=== PATIENT | female | born 1985 | race African-American/Black ===

== ENCOUNTER 2020-04-10 12:35 | Outpatient (CLI) | payer OTHER ==
[~2020-04-10] VITALS: Ht 167.6 cm; Wt 93.4 kg
[2020-04-10 12:57] VITALS: BP 107/67
[2020-04-10] MEDS ORDERED: PRENTAB9 PO (13:32)
[2020-04-10 14:22] LABS: INFLUENZA A AMPLIFICATION NEGATIVE (NEGATIVE); INFLUENZA B AMPLIFICATION NEGATIVE (NEGATIVE)
[2020-04-10 15:19] VITALS: BP 126/75
--- NOTE | 2020-04-10 16:07 | HPEPDOC ---
Obstetrical History & Physical General Date of Admission History of Present Illness 04/10/20 1530 seen in ed sent to avi RLQ pain x24 hours with movement no vaginal loss or bleeding good movement . also sob with pain . Age: 36 : 4 Term: 2 Abortions: 1 Care Care: Good Care Dating Final EDC: Jun 11, 2020 Final EDC for Daily Update: Jun 11, 2020 Final EDC by: 1st trimester (US) LMP: Sep 05, 2019 Estimated Date of Confinement: Jun 11, 2020 Antepartum Course Diagnos(e)s AMA LATE ENTRY TO CARE TRANSFER FROM [facility] Past Medical History Past Medical History Medical History NON CONTRIBUTORY Surgical History: Other Family History Significant Family History: No pertinent family hx Social History Social history NON SMOKER NO ETOH NO RECREATIONAL DRUGS NO VAPING TO [employer] NO VIOLENCE Marital Status: Psychosocial History: No pertinent psych hx * Smoker: non-smoker Alcohol: Denies Drugs: denies Abuse Violence Screening Have you been hit/kicked/slapp: No Have you been sexually assault: No Allergies Coded Allergies: No Known Allergies (Unverified , 04/10/20) Medications Scheduled No.137/Iron/Folic Acd ( Vitamin Tablet) 1 Each Tablet, 1 TAB PO DAILY Physical Examination Physical Examination GENERAL: Alert and oriented times three. BREAST: . ABDOMEN: Gravid and non-tender to touch. FETUS: Is vertex (VTX) HEART RATE: Regular rate and rhythm. LUNGS: Clear to auscultation (CTA). EXTREMITIES: No edema. No clonus. Deep tendon reflexes (DTRs) + . Vital Signs/I&O Vital Signs Date Time Temp Pulse Resp B/P (MAP) Pulse Ox O2 Delivery O2 Flow Rate FiO2 04/10/20 15:13 30 04/10/20 12:57 98.3 86 107/67 (80) Laboratory Data 24H LABS Laboratory Tests 2 04/10/20 13:11: Coronavirus (COVID-19)(PCR) NEGATIVE 04/10/20 13:42: Influenza Type A (RT-PCR) NEGATIVE, Influenza Type B (RT-PCR) NEGATIVE Pertinent Laboratoy Data Blood Type: B+ RBC Antibody Screen: Negative HIV: Negative Hepatitis B: Negative Hepatitis C: Negative Rapid Plasma Reagin: Nonreactive Rubella: Immune Varicella: Immune Group B Streptococcus: Unknown Anatomy Ultrasound Ultrasound Date: Apr 10, 2020 Placenta Location: Anterior Placenta Previa: No Other Ultrasounds EXPLAINED PROCEDURE CONSENTED ABDOMINAL US VERTEX LIMB MOVEMENT NOTED PAIN REPRODUCED WITH MOVEMENT SPONTANOUS RESPIRATION CARDIAC ACTIVITY NOTED CAMILA 2.78CM 2.46CM 2.75 CM 6.99 CM Steroid Therapy Steroid Therapy: No Vaginal Examination Presentation: Cephalic presentation Assessment Variability: Moderate Accelerations: Positive Decelerations: None Tocometer Contractions: No Assessment/Plan Assessment 36 Y.O IS A 5para 2 at 31 weeks by ultrasound. Presents to Labor and Delivery RLQ PAIN WITH POSITION AND RAPID RR NO SOB NO COUGH FLU LIKE SYMPTOMS . Plan Shipping Technician and consent. Diet: REGULAR Group B Streptococcus (GBS) UNKNOWN Labor and Delivery Counseling PLAN REVIEWED WAS COVID TESTED AND INFLUENZA TESTED NEGATIVE CALL FT [facility] FOR INTAKE APPOINTMENT PRECAUTIONS GIVEN DISCHARGED UNDELIVERED . FINAL NST CATAGORY 1 STRIP NO CONTRACTIONS Brian Jimenez MD Apr 10, 2020 16:03
== END 2020-04-10 15:45 | disposition home or self-care (01) ==
LOC: M LDO 12:35
PROVIDERS: ATTEND Obstetrics & Gynecology
DX: O99.513 Diseases of the respiratory system complicating pregnancy, third trimester (principal); R10.31 Right lower quadrant pain; Z3A.31 31 weeks gestation of pregnancy
CPT/HCPCS: 59025; 76815; 87502; G0378; G0463; U0002

== ENCOUNTER 2020-06-01 02:09 | Inpatient (IN) | payer OTHER ==
[~2020-06-01] VITALS: Ht 167.6 cm; Wt 95.0 kg
[~2020-06-01 02:09] MED LIST: PRENTAB9 PO
[2020-06-01] MEDS ORDERED: LR 1,000 ML IV SCH (02:35)
[2020-06-01] MEDS ORDERED: OXYTOCIN 30 UNITS IN 0.9% NaCl 500ML IV BAG (J2590) As Ordered ONE (02:41)
[2020-06-01] MEDS ORDERED: IBUPROFEN 800 MG TAB PO PRN (02:45)
[2020-06-01] MEDS ORDERED: ACETAMINOPHEN 500 MG TAB PO PRN (02:45)
[2020-06-01] MEDS ORDERED: OXYTOCIN INJ 10 UNITS/ML VIAL (J2590) IM ONE (02:45)
[2020-06-01] MEDS ORDERED: PROMETHAZINE 25 MG TAB PO PRN (02:45)
[2020-06-01] MEDS ORDERED: ANUSOL HC CREAM 30GM TOP PRN (02:45)
[2020-06-01] MEDS ORDERED: MOM 30ML SUSPENSION UDC PO PRN (02:45)
[2020-06-01] MEDS ORDERED: BENZOCAINE 20% HEMORRHOIDAL OINTMENT 28GM TUBE TOP PRN (02:45)
[2020-06-01] MEDS ORDERED: miSOPROStol 200 MCG TAB (S0191) PR ONE (02:45)
[2020-06-01 02:54] LABS: CORD GAS ABE A -3.4; CORD GAS ABE V -1.5; CORD GAS HCO3 A 23.1 MEQ/L; CORD GAS HCO3 V 24.7 MEQ/L; CORD GAS O2 SAT A 77.7 %; CORD GAS O2 SAT V 67.2 %; CORD GAS PCO2 V 47.3 mmHg; CORD GAS PH A 7.309 UNITS; CORD GAS PH V 7.335 UNITS; CORD GAS PO2 A 36.5 mmHg; CORD GAS PO2 V 29.1 mmHg; CORD GAS SBC A 21.2 MEQ/L; CORD GAS SBC V 22.5 MEQ/L; CORD GAS TCO2 A 24.5 MEQ/L; CORD GAS TCO2 V 26.1 MEQ/L
--- NOTE | 2020-06-01 02:57 | DNPDOC ---
[facility] Delivery Note Delivery Note DATE OF DELIVERY: 06/01/2020 PREDELIVERY DIAGNOSIS: 36 ND 4/7 weeks' gestation and labor. POST DELIVERY DIAGNOSIS: Delivered. PROCEDURE: Spontaneous vaginal delivery. CHIEF ENGINEER PRODUCTION: Leo Pedraza MD ANESTHESIA: NONE ESTIMATED BLOOD LOSS: 100 mL. FINDINGS: 7 pound 15 ounce MALE , Score 9/9, nuchal cord times ZERO. DELIVERY SUMMARY: Patient is a 35-year-old 3 now para 3003 who was admitted to labor and PRECIPITOUSLY DELIVERED A health male with Score 9/9. I was called to the room that " baby was out". upon delivery in the room, RN Tone Caldwell had delivered baby boy and was holding him in her hands in the bathroom. I cut the cord and mother was worked back to the bed. placenta was then delivered spontaneously and inspection releaved an intact perineum in. the baby was taken to the warmer with apgars of 9/9. 10ml IM Pitocin and 100omcg of cytotec was given as patient did not have IV access. EBL was 100mL. The vagina and perineum were reinspected and no further lacerations were found and hemostasis was good. Fundus was firm. Patient tolerated delivery well. cord gas were obtained LEO MARTIN MD Jun 01, 2020 02:57
[2020-06-01] MEDS ORDERED: KETOROLAC 30 MG/ML 1ML VIAL As Ordered ONE (02:58)
[2020-06-01] MEDS ORDERED: KETOROLAC 30 MG/ML 1ML VIAL IV ONE (03:00)
--- NOTE | 2020-06-01 03:03 | HPEPDOC ---
Obstetrical History & Physical General Date of Admission Jun 01, 2020 at 02:13 History of Present Illness THIS IS a 35 yo G4 NOW P3 0013 WHO PRESENTED TO L&D and precipitously delivered a healthy male infant with apgars of 9/9. she is RH positive and GBS Negative. Past Medical History Allergies Coded Allergies: No Known Allergies (Unverified , 04/10/20) Medications Scheduled No.137/Iron/Folic Acd ( Vitamin Tablet) 1 Each Tablet, 1 TAB PO DAILY Physical Examination Physical Examination GENERAL: Alert and oriented times three. BREAST: . EXTREMITIES: No edema. No clonus. Deep tendon reflexes (DTRs) + . Laboratory Data 24H LABS Laboratory Tests 2 06/01/20 02:33: Cord Arterial Blood pH 7.309, Cord Arterial Blood PCO2 47.0, Cord Arterial Blood PO2 36.5, Cord Arterial Blood HCO3 23.1, Cord Arterial Blood Total CO2 24.5, Cord Arterial Blood Base Excess -3.4, Cord Arterial Base Excess (Standard 21.2, Cord Arterial Bld Oxygen Saturation 77.7, Cord Venous Blood pH 7.335, Cord Venous Blood PCO2 47.3, Cord Venous Blood PO2 29.1, Cord Venous Blood HCO3 24.7, Cord Venous Blood Total CO2 26.1, Cord Venous Base Excess (Actual) -1.5, Cord Venous Base Excess (Standard) 22.5, Cord Venous Blood Oxygen Saturation 67.2 Assessment/Plan Assessment THIS IS a 35 yo G4 NOW P3 0013 WHO PRESENTED TO L&D and precipitously delivered a healthy male with apgars of 9/9. she is RH positive and GBS Negative Plan Transfer to [facility]OUTINE [facility]ARE. LEO MARTIN MD Jun 01, 2020 03:03
[2020-06-01 03:27] LABS: HEMATOCRIT 42.8 % (36.0-47.0); HEMOGLOBIN 13.2 g/dl (12.0-15.5); MEAN CORPUSCULAR HEMOGLOBIN 27.3 pg (27.0-33.0); MEAN CORPUSCULAR HGB CONC 30.8 g/dl (32.0-36.5); MEAN CORPUSCULAR VOLUME 88.6 fl (80.0-96.0); PLATELET COUNT, AUTOMATED 255 10^3/uL (150-450); RED BLOOD COUNT 4.83 10^6/uL (4.00-5.40)
[2020-06-01 06:00] VITALS: BP 130/75
[2020-06-01] MEDS: FERROUS SULFATE 325MG TAB PO SCH (08:34)
[2020-06-01] MEDS: DOCUSATE SODIUM 100MG CAPSULE PO SCH ×2 (08:34→19:57)
[2020-06-01] MEDS: IBUPROFEN 800 MG TAB PO PRN (12:37)
[2020-06-01 18:00] VITALS: BP 119/62
[2020-06-02 06:26] VITALS: BP 114/73
--- NOTE | 2020-06-02 07:12 | IPNPDOC ---
Progress Note Date of Service: Jun 02, 2020 Day#: 1 Progress Note SUBJECT: 35 year-old 4 now Para 4 status post uncomplicated spontaneous vaginal delivery on 06/01/20of a M doing well day # 1. She has been ambulating, voiding spontaneously without issue and tolerating regular diet. Breast feeding without issue. Reports lochia is [like a normal period]. Patient is ambulating well. [Reports some cramping with . Denies any pain. Voiding and stooling without difficulty]. OBJECTIVE: VITAL SIGNS: Within normal limits, afebrile. Alert and oriented times three. Breath sounds clear to auscultation. Heart rate: Regular rate and rhythm, no murmurs, rubs or gallops. Abdomen: Fundus firm at U-2. Soft, NTTP. [Minimal] lochia. ASSESSMENT: 35 year-old 4 now Para 4 status post uncomplicated spontaneous vaginal delivery after presenting in active labor with spontaneous rupture of membranes (SROM), delivered hours doing well on day 1. Vi tals within normal limits, afebrile, hemodynamically stable with no evidence of infection. DISCUSSED CYSTITIS PHLEBITIS MASTITIS PERINEAL AND BREAST CARE PLAN: 1. Discharge to home today. 2. Tylenol and Motrin for pain. 3. Encourage breast feeding and ambulation. 4. DISCUSS BC AT 6 WEEK PP VISIT 5. Routine PP visit in 6 weeks in clinic. 6. Discussed return precautions at length. VS, I&O, 24H, Fishbone Vital Signs/I&O Vital Signs Date Time Temp Pulse Resp B/P (MAP) Pulse Ox O2 Delivery O2 Flow Rate FiO2 06/02/20 06:26 97.2 83 18 114/73 (87) 06/01/20 18:00 99 Room Air Ht / Wt Ht / Wt Height:5 Feet 6 Inches Weight: 95.000 Kg Vital Signs Vital Signs Date Time Temp Pulse Resp B/P (MAP) Pulse Ox O2 Delivery O2 Flow Rate FiO2 06/02/20 06:26 97.2 83 18 114/73 (87) 06/01/20 18:00 99 Room Air Laboratory Data Laboratory Tests 06/01/20 02:45 Brian Jimenez MD Jun 02, 2020 07:07
[2020-06-02] MEDS ORDERED: DOK1CAP7 PO (07:15)
[2020-06-02] MEDS ORDERED: IBUP80TA PO (07:15)
[2020-06-02] MEDS: IBUPROFEN 800 MG TAB PO PRN (07:56)
[2020-06-02] MEDS: DOCUSATE SODIUM 100MG CAPSULE PO SCH (07:56)
[2020-06-02] MEDS: FERROUS SULFATE 325MG TAB PO SCH (07:56)
[2020-06-02 18:00] VITALS: BP 116/71
== END 2020-06-02 18:00 | disposition home or self-care (01) | DRG 807 ==
LOC: M LDO 02:09 → M LDI 02:13 → M OBS 04:35
PROVIDERS: ADMIT Obstetrics & Gynecology; ATTEND Obstetrics & Gynecology
PROC: 10E0XZZ Delivery of Products of Conception, External Approach (ICD-10-PCS; principal; 2020-06-01)
DX: O62.3 Precipitate labor (principal); Z37.0 Single live birth; Z3A.38 38 weeks gestation of pregnancy; O09.523 Supervision of elderly multigravida, third trimester

== ENCOUNTER 2021-01-24 11:14 | Emergency (ER) | payer OTHER ==
[~2021-01-24] VITALS: Ht 167.6 cm; Wt 88.4 kg
[~2021-01-24 11:14] MED LIST changes: +DOK1CAP7 PO; +IBUP80TA PO
[2021-01-24] MEDS ORDERED: TETRACAINE 0.5% OPHTH SOLN 4ML OU ONE (14:10)
[2021-01-24] MEDS ORDERED: FLUORESCEIN OPHTH 1 MG STRIP OU ONE (14:10)
[2021-01-24 17:15] VITALS: BP 135/85
== END 2021-01-24 17:45 | disposition home or self-care (01) ==
LOC: M ED 11:14
DX: H53.8 Other visual disturbances (principal)

== ENCOUNTER 2021-12-21 17:35 | Outpatient (CLI) | payer OTHER ==
[~2021-12-21] VITALS: Ht 167.6 cm; Wt 92.3 kg
[~2021-12-21 17:35] MED LIST changes: +DOK1CAP4 PO; -DOK1CAP7 PO
[2021-12-21 17:49] VITALS: BP 109/65
[2021-12-21] MEDS ORDERED: MULTTAB20 PO (17:54)
[2021-12-21] MEDS ORDERED: ZYRTTAB8 PO (17:54)
== END 2021-12-21 18:19 | disposition home or self-care (01) ==
LOC: M LDO 17:35
PROVIDERS: ATTEND Obstetrics & Gynecology
DX: O47.1 False labor at or after 37 completed weeks of gestation (principal); Z3A.39 39 weeks gestation of pregnancy
CPT/HCPCS: 59025; G0378; G0463